=== PATIENT | male | born 1950 | race Asian ===

== ENCOUNTER 2020-05-26 13:10 | Emergency (ER) | payer MEDICARE, MEDICAID ==
[~2020-05-26] VITALS: Ht 177.8 cm; Wt 70.0 kg
[~2020-05-26 13:10] MED LIST: ASPI-1497 PO; BENA20TA10 PO; MULT-1146 PO; SIMV-43 PO
[2020-05-26 14:07] LABS: BASOPHILS % 1.3 % (0.0-2.0); EOSINOPHILS % 2.3 % (0.0-5.0); HEMATOCRIT. 46.9 % (42.0-52.0); HEMOGLOBIN. 15.9 g/dL (14.0-18.0); MEAN CORPUSCULAR HEMOGLOBIN 29.8 pg (28.0-32.0); MEAN CORPUSCULAR VOLUME 87.9 fL (80.0-94.0); MEAN PLATELET VOLUME 9.1 fl (7.4-10.4); MONOCYTES % 9.1 % (2.0-8.0); NEUTROPHILS % 64.3 % (40.0-76.0); PLATELET 254 x1000/uL (130-400); RED BLOOD CELL COUNT 5.33 mill/uL (4.7-6.1); RED CELL DISTRIBUTION WIDTH 14.3 % (11.6-14.6)
[2020-05-26 14:14] LABS: CHLORIDE 106 mEq/L (98-107)
[2020-05-26 17:20] VITALS: BP 152/91
== END 2020-05-26 19:00 | disposition home or self-care (01) ==
LOC: ER 13:10 → CANBEDREQ 19:57
DX: R07.89 Other chest pain (principal); I10 Essential (primary) hypertension; Z79.82 Long term (current) use of aspirin; Z79.899 Other long term (current) drug therapy; Z88.1 Allergy status to other antibiotic agents; Z88.2 Allergy status to sulfonamides; Z88.3 Allergy status to other anti-infective agents; Z88.6 Allergy status to analgesic agent; Z87.442 Personal history of urinary calculi; Z86.73 Personal history of transient ischemic attack (TIA), and cerebral infarction without residual deficits
CPT/HCPCS: 36415; 71045; 80053; 82248; 83880; 84484; 85025; 93005; 99285